=== PATIENT | male | born 1955 | race Caucasian/White ===

== ENCOUNTER 2023-10-08 03:18 | Observation (INO) | payer MEDICARE, SELFPAY ==
[2023-10-07 22:10] VITALS: BP 162/79; BMI 32.0
[2023-10-07 22:36] LABS: Urine Albumin Negative (Neg - Trace); Urine Bilirubin Negative (Negative); Urine Character Clear (Clear); Urine Color Yellow; Urine Glucose 3+ (Negative); Urine Ketone 1+ (Negative); Urine Leukocyte Negative (Negative); Urine Nitrite Negative (Negative); Urine Occult Blood Negative (Negative); Urine Urobilinogen Negative (Neg - 1+)
[2023-10-07 22:46] LABS: % Basophils 1.2 % (0-2); % Eosinophils 5.1 % (0-6); % Immature Granulocytes 0.4 % (0-0.5); % Monocytes 9.4 % (1.7-9.3); % Neutrophils 52.9 % (42.2-75.2); Absolute Basophils 0.1 10^3/uL (0-0.2); Absolute Eosinophils 0.4 10^3/uL (0-0.7); Absolute Lymphocytes 2.4 10^3/uL (1.2-3.4); Absolute Monocytes 0.7 10^3/uL (0.1-0.6); Hematocrit 40.6 % (39.0-52.0); Hemoglobin 14.2 g/dL (13.0-18.0); Mean Corpuscular Hgb 30.3 pg (27.0-31.0); Mean Corpuscular Volume 86.6 fL (80.0-94.0); Mean Platelet Volume 10.9 fL (7.4-10.4); Nucleated Red Blood Cells % 0 % (-); Platelet Count 242 10^3/uL (130-400); Red Blood Cell Count 4.69 10^6/uL (4.70-6.10); Red Cell Dist. Width 13.9 % (11.5-14.5); White Blood Cell Count 7.6 10^3/uL (4.8-10.8)
[2023-10-07 23:19] LABS: Calcium 8.9 mg/dl (8.4-10.2); Carbon Dioxide 17 mmol/L (22-30); Chloride 105 mmol/L (98-107); Estimated Creatinine Clearance 107 ml/min; Glucose 465 mg/dl (70-99); Sodium 131 mmol/L (135-145); eGFR > 60.00
[2023-10-07 23:21] LABS: Blood Urea Nitrogen 22 mg/dl (9-20)
[2023-10-08] VITALS (7 sets, daily range): BP systolic 122–142; BP diastolic 57–77; BMI 32.9
[2023-10-08] MEDS: NSS 1000 IV ×4 (00:08→15:44)
[2023-10-08 00:26] LABS: Venous Blood Gas HCO3 17.8 mmol/L (22-27); Venous Blood Gas O2 Sat % 89.1 %; Venous Blood Gas pCO2 33 mmHg (35-48); Venous Blood Gas pH 7.34 (7.32-7.43); Venous Blood Gas pO2 56 mmHg (30-50)
[2023-10-08 00:35] LABS: Venous Blood Gas O2 Therapy 98
--- NOTE | 2023-10-08 00:39 | ED.GENMED ---
History of Present Illness
General
Chief Complaint: Blood Sugar Problem
Time Seen by Provider: 10/07/23 23:41
Travel History
Have you had any contact with someone who has COVID-19?: No
Do you have any symptoms of coronavirus? Fever > 100 degrees, chills, cough, shortness of breath, sore throat, loss of taste or smell, muscle aches, or headache?: No
History of Present Illness
History of Present Illness:
68-year-old male with history of prostate cancer currently on Lupron, hypertension and newly diagnosed diabetes presents to the emergency department due to elevated glucose. Patient reports a 2 to 3-week history of polyuria and polydipsia, saw his
primary care physician earlier this week and had labs that showed hyperglycemia and hemoglobin A1c of approximately 12. He was started on Farxiga but just began this medication yesterday. He was also provided with a subcutaneous glucose monitor
implant, he notes today that his readings were consistently greater than 350 prompting him to come to the emergency department. He denies any chest pain or shortness of breath, denies any recent fevers. Denies any nausea, vomiting, or abdominal
pain at this time.
Past History
Past History
ED Past Medical History: HTN, Hypercholesterolemia and Other (Prostate cancer )
ED Past Surgical History: Other (Prostate removal )
Social History
Tobacco: Non-smoker
Alcohol: Occasional
Drug: None
Personal:
Living: with family
Employment: Employed
Family History
Family History: Negative Early CAD or CAD
Review of Systems
Review of Systems
Allergies reviewed?: Yes
All Other Systems: ROS reviewed and negative except as documented in HPI and ROS
Phy Exam
Physical Exam
Physical Exam:
GEN: Well appearing, NAD, WDWN
Eyes: PERRLA, EOMs intact, no scleral icterus
HENT: NCAT, oral mucosa moist
Lungs: CTAB, no wheezes, rales, rhonchi, normal chest wall excursion
Cardiac: RRR, no M/R/G, no peripheral edema. Radial pulses 2+ bilat
Abdomen: S, NT, ND, NABS, no masses or hepatosplenomegaly
Neuro: AO x 3
MSK: No gross deformity or ecchymosis. No edema. No digital clubbing
Skin: No rashes, petechiae. Normal color, no pallor or jaundice.
Psych: Calm, cooperative, proper hygiene
Course
Orders/Labs/Results
Orders:
Orders
10/07/23 22:30
Basic Metabolic Panel Urgent
Complete Blood Count/With Diff Urgent
Urinalysis Reflex To Culture Urgent
Date Specimen was Collected: 10/07/23
Time Specimen was Collected: 22:15
10/08/23 00:00
0.9% Sodium Chloride 1000 ml [Nss] 1,000 ml IV BOLUS
10/08/23 00:01
Lactated Ringers [Lr] 1,000 ml IV BOLUS
10/08/23 00:13
Acetone [B-Hydroxybutyrate] Urgent
Basic Metabolic Panel Urgent
Serum Osmolality Urgent
Comment: ADD ON
Venous Blood Gas Urgent
%Oxygen/Room Air: 98
10/08/23 00:17
Pramipexole [Mirapex] 0.25 mg PO NOW STA
10/08/23 01:11
Insulin Aspart [NOVOLOG vial] 10 units SC NOW STA
10/08/23 01:34
Lactic Acid Urgent
10/08/23 02:30
Bedside Glucose- Treatment ONCE
10/08/23 02:32
Add On- LAB Urgent
Tests Added?: serum osmolality
10/08/23 02:57
Admit/Transfer Patient As Directed
Co-Sign Provider:
Level of Care: Observation services
Assign to:: Medical/Surgical
Physician / Group: Jay
Diagnosis: DM-II, Uncontrolled
Code Status As Directed
Resuscitation Status: Full Code
10/08/23 04:48
0.9% Sodium Chloride 1000 ml [Nss] 1,000 ml IV 200 mls/hr
Acetaminophen [Tylenol] 650 mg PO Q4HPRN PRN
Dextrose 50%-Water [Dextrose 50% Syringe] 12.5 grams IV [id number] PRN
Glucagon [GlucaGen] 1 mg IM PRN PRN
Ondansetron Injectable [Zofran] 4 mg IV Q6HPRN PRN
10/08/23 04:48
Diabetes Education Consult Routine
Reason for Consult: Monitor Instruction
Newly Diagnosed?: Yes
Activity As Directed
Activity Level: Ambulate
Bedside Glucose Monitoring As Directed
Frequency: AC&HS
Additional Instructions:: Change to q6h if pt on TPN, tube feeding or not eating
Bladder Scan As Directed
Follow Bladder Retention/Intermittent Cath Algorithm?: Yes
PRN if no void in __ hours: 6
Frequency: Per Retention Algorithm
If Bladder Scan Result >: 400
then:: Straight cath
I/O [Intake/ Output] As Directed
Frequency: Per unit guidelines
Straight Cath As Directed
Frequency: Per Retention Algorithm
Additional Instructions: straight cath as needed per acute urinary retention algorithm for 24 hrs
Additional Instructions: for bladder scan greater than 400 mL
Vital Signs As Directed
Frequency: Per unit guidelines
Weight As Directed
Frequency: Daily
Oxygen Therapy [O2 Therapy] [RESP] Routine
Titrate/Wean O2 to maintain O2 sat greater than (%): 94
DX Deep Vein Thrombosis Video Routine
10/08/23 Breakfast
2000 calorie (17 carb) Diabetic
At Your Request: Full Participation
Does patient need a safe tray?: No
10/08/23 06:52
Basic Metabolic Panel IN AM
Complete Blood Count/No Diff IN AM
Magnesium IN AM
Phosphorus IN AM
TSH Reflex To Free T4 Routine
10/08/23 07:30
Insulin Aspart Corrective Low [Novolog Flexpen-Low Resistance] See Protocol SC AC
10/08/23 08:00
GlipiZIDE [Glucotrol] 5 mg PO BID@0800,1700
Lisinopril [Zestril] 10 mg PO BID
METFORMIN HCl [Glucophage] 1,000 mg PO BID@0800,1700
cyanocobalamin-cobamamide [B12] 1 otf SL BID
10/08/23 18:00
Atorvastatin [Lipitor] 20 mg PO QPM
Enoxaparin Sodium [Lovenox] 40 mg SC QPM
Pramipexole [Mirapex] 0.25 mg PO QPM
Abnormal Lab Results
10/07/23 10/08/23 10/08/23
22:30 00:13 02:50
RBC 4.69 L 10^6/uL
(4.70-6.10)
MPV 10.9 H fL
(7.4-10.4)
Absolute Monos (auto) 0.7 H 10^3/uL
(0.1-0.6)
Monocytes % 9.4 H %
(1.7-9.3)
VBG pCO2 33 L mmHg
(35-48)
VBG pO2 56 H mmHg
(30-50)
VBG HCO3 17.8 L mmol/L
(22-27)
Sodium 131 L mmol/L 132 L mmol/L
(135-145) (135-145)
Carbon Dioxide 17 L mmol/L 16 L mmol/L
(22-30) (22-30)
BUN 22 H mg/dl 23 H mg/dl
(9-20) (9-20)
Glucose 465 H* mg/dl 503 H* mg/dl
(70-99) (70-99)
Serum Osmolality 310 H mOsm/kg
(275-300)
Urine Ketones 1+ A
(Negative)
Urine Glucose 3+ A
(Negative)
B-Hydroxybutyrate 0.48 H mmol/L
(0.02-0.27)
POC Glucose 308 H mg/dl
(70-99)
10/07/23 22:30
10/08/23 00:13
Vital Signs
Initial and Last Documented VS:
Initial Vital Signs
Pulse Resp BP Pulse Ox
83 16 162/79 98
10/07/23 22:10 10/07/23 22:10 10/07/23 22:10 10/07/23 22:10
Last Documented Vital Signs
Temp Pulse Resp BP Pulse Ox
98.2 F 74 16 138/84 94
10/09/23 15:00 10/09/23 15:00 10/09/23 15:00 10/09/23 15:00 10/09/23 15:00
MDM/Problems Addressed
MDM/Problems Addressed:
Pt with new onset DM diagnosed 2d ago by PCP, found to have markedly elevated glucose with a compensated metabolic acidosis evidenced by low bicarb with mildly decreased PCO2. No anion gap and normal pH thus no indication for insulin drip. Due to
the metabolic acidosis, he is high risk for d/c on further PO medications thus will admit to the hospitalist service, subQ insulin started in the ED as well as IV fluid resucitation.
*Critical Care Note
Total Time (30-74mins, 75-104mins- exclusive of procedures): Not Applicable
ED Attending Note
-
Portions of this chart may have been created with voice recognition software.� Occasional wrong word or��sound alike� substitutions may have occurred due to the inherent limitations of voice recognition software.
Discharge Plan
Departure
Patient Disposition: Admit
Date of Disposition: 10/08/23
Time of Disposition: 01:20
Admit to: Med/Surg
Presentation/result/management discussed w/ accepting MD/DO: Hospitalist
Discharge Problem:
Diabetes mellitus, new onset, Compensated metabolic acidosis
Interventions
Interventions:
*Risk Screen - Suicide Last Done: 10/08/23 05:06
*General Assessment Last Done: 10/08/23 00:09
*Neglect/Abuse Screening Last Done: 10/07/23 22:10
ED- Fall Risk Assessment Last Done: 10/07/23 22:10
*ED COVID-19 Vaccine History Last Done: 10/08/23 00:09
*Nursing Disposition Last Done: 10/08/23 04:51
ED- Neurological Assessment Last Done: 10/08/23 00:09
Discharge Date and Time
Discharge Date/Time: 10/08/23 04:53
[2023-10-08 00:48] LABS: Blood Urea Nitrogen 23 mg/dl (9-20); Calcium 8.8 mg/dl (8.4-10.2); Carbon Dioxide 16 mmol/L (22-30); Chloride 107 mmol/L (98-107); Estimated Creatinine Clearance 107 ml/min; Glucose 503 mg/dl (70-99); Potassium 4.9 mmol/L (3.5-5.1); Sodium 132 mmol/L (135-145); eGFR > 60.00
[2023-10-08 00:59] LABS: B-Hydroxybutyrate 0.48 mmol/L (0.02-0.27)
[2023-10-08] MEDS: LR 1000 IV (01:16)
[2023-10-08] MEDS: MIRAPEX 0.25 MG PO ×2 (01:28→17:33)
[2023-10-08] MEDS: NOVOLOG vial 10 UNITS SC (01:28)
[2023-10-08 01:50] LABS: Lactic Acid 1.1 mmol/L (0.7-2.0)
[2023-10-08 02:51] LABS: Glucose - Point of Care 308 mg/dl (70-99)
--- NOTE | 2023-10-08 03:04 | HPS.HSE ---
Family Physician
-
Family Physician: Man Palmer
Chief Complaint
-
Hyperglycemia
History of Present Illness
Patient is a 68y M with PMH significant for prostate cancer and recently diagnosed DM-II who presents to ED complaining of elevated blood glucose values. Patient notes that he has maintained on Lupron for the past 4 years for treatment of his
prostate cancer. He has been doing fairly well. He recently developed symptoms of polyuria and polydipsia and was seen by his PCP. His labs revealed glucose > 300 and A1C = 12%.
Patient was started on Farxiga 5mg daily only a few days ago. He was given a glucometer and instructed on its use.
This evening he was monitoring his glucose and noted that it increased to > 350 and remained that elevated for over an hour.
He presented to the ED for further evaluation. Patient admits to feeling very thirsty, but otherwise has no current complaints.
His initial glucose on labs here in the ED was 503.
Medical History
Past Medical History
Past Medical History: Reports Other
Additional Past Medical History:
Prostate Cancer s/p Surgery, XRT and on Hormonal Therapy
Hypertension
Obesity
DM-II (new)
Pernicious Anemia
Restless Leg Syndrome
Past Surgical History: Reports Other
Additional Past Surgical History:
Total Prostatectomy
Social History
Tobacco: Non-smoker
Alcohol: Occasional
Drug: None
Family History
Family History: Other (Multiple Siblings also with DM-II. Brother: GIST Brother: Sarcoma Father: Colon Cancer)
Allergies / Home Medications
Allergies reflects when Allergies were last updated in [facility].
Home Medications with original date entered in [facility]
Allergy/Medication List:
Allergies
Allergy/AdvReac Type Severity Reaction Status Date / Time
bee pollen [Bee Pollen] Allergy Severe Anaphylaxis Verified 10/07/23 22:10
squash Allergy Unknown Verified 10/07/23 22:10
STONE FRUITS Allergy Unknown Uncoded 10/07/23 22:10
Home Medications
Lupron IM .[id number] 12/11/22
atorvastatin 20 mg tablet 20 mg PO QPM 12/11/22
pramipexole 0.25 mg tablet 0.25 mg PO QPM 12/11/22
cyanocobalamin (B12)-cobamamide 5,000 mcg-100 mcg sublingual lozenge (B12) 1 otf sublingual BID 10/08/23
dapagliflozin propanediol 5 mg tablet (Farxiga) 5 mg PO DAILY 10/08/23
lisinopril 10 mg tablet 10 mg PO BID 10/08/23
multivitamin 1 tab PO DAILY 10/08/23
Review of Systems
-
History Source: Patient
A 12 point ROS was completed and negative except as noted: Yes
Constitutional: Denies Fever, Fatigue or Chills
EENT: Denies Sore Throat
Respiratory: Denies Cough or Trouble Breathing
Cardiac: Denies Chest Pain or Palpitations
Abdomen/GI: Denies Abdominal Pain, Nausea, Vomiting or Diarrhea
: Reports Frequency; Denies Dysuria or Urgency
Musculoskeletal: Denies Joint Pain or Edema
Neurological: Denies Dizzy or Headache
Endocrine: Reports Polyuria and Polydipsia
Psych: Denies Depression or Anxiety
Physical Exam
Vital Signs
Vital Signs
Pulse Resp BP Pulse Ox
83 16 162/79 97
10/07/23 22:10 10/07/23 22:10 10/07/23 22:10 10/08/23 00:09
Physical Exam
General: Other (68y M in no acute distress.)
HEENT: Moist mucous membranes and PERRLA
Respiratory: Clear; No Wheezes, Rales or Rhonchi
Cardiac: S1/S2 and Regular Rhythm; No Murmur
GI: Soft, Non Tender, Non Distended and Normal Bowel Sounds
Musculoskeletal: No Clubbing, No Cyanosis and No Edema
Neuro: AO x 3
Laboratory Results
-
10/07/23 22:30
10/08/23 00:13
Laboratory Results
Lactic Acid 1.1 mmol/L (0.7-2.0) 10/08/23 01:34
Total Bilirubin Cancelled 10/07/23 22:30
AST Cancelled 10/07/23 22:30
ALT Cancelled 10/07/23 22:30
Alkaline Phosphatase Cancelled 10/07/23 22:30
Impression/Plan
-
A/P: Patient is a 68y M with PMH significant for prostate cancer, HTN and recently diagnosed DM-II who presents to ED for evaluation of hyperglycemia.
DM-II, Uncontrolled
Mild HHNK
- Observe overnight for further evaluation and treatment.
- No elevated anion gap / no DKA.
- Hyperglycemic and hyperosmolar with non-gapped metabolic acidosis c/w HHNK.
- Aggressive IVF replacement.
- Glucose decreased to 308 after 10 units of insulin in the ED.
- This is clearly a chronic issue given A1C = 12% as an outpatient.
- Will begin metformin BID with meals and sulfonylurea.
- Follow glucose and cover with additional SSI as needed.
- Once glucose values are improved / stabilized on new med regimen - discharge home for further follow-up with PCP.
- Will hold Farxiga for now. Consider re-initiation once hyperglycemia / polyuria is better controlled.
Benign Hypertension
- Stable. Continue lisinopril and adjust regimen as needed.
Prostate Cancer
- Stable. 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
Obesity due to excess calories / insulin resistance
- Affects all aspects of care.
- Encourage healthy diet and increased activity with goal of weight loss.
- DM education during stay.
Restless Leg Syndrome
- Stable. Continue Mirapex.
DVT Prophylaxis: Lovenox
Code Status: Full
[2023-10-08 03:08] LABS: Osmolality Serum 310 mOsm/kg (275-300)
--- NOTE | 2023-10-08 05:24 | PTCARENOTE ---
Pt. admitted from E.D., AAO x 3, vs stable, IVF's started, call alejo within reach.
[2023-10-08 07:11] LABS: Hemoglobin 11.9 g/dL (13.0-18.0); Mean Corpuscular Volume 88.2 fL (80.0-94.0); Mean Platelet Volume 10.5 fL (7.4-10.4); Platelet Count 182 10^3/uL (130-400); Red Blood Cell Count 3.97 10^6/uL (4.70-6.10); Red Cell Dist. Width 13.5 % (11.5-14.5); White Blood Cell Count 5.1 10^3/uL (4.8-10.8)
[2023-10-08 07:29] LABS: Glucose - Point of Care 159 mg/dl (70-99)
[2023-10-08 07:39] LABS: Blood Urea Nitrogen 17 mg/dl (9-20); Calcium 8.3 mg/dl (8.4-10.2); Carbon Dioxide 17 mmol/L (22-30); Chloride 114 mmol/L (98-107); Estimated Creatinine Clearance 124 ml/min; Glucose 147 mg/dl (70-99); Phosphorus 3.9 mg/dl (2.5-4.5); Potassium 3.9 mmol/L (3.5-5.1); Sodium 136 mmol/L (135-145); eGFR > 60.00
[2023-10-08] MEDS: ZESTRIL 10 MG PO ×2 (10:06→20:15)
[2023-10-08] MEDS: GLUCOTROL 5 MG PO ×2 (10:06→17:35)
[2023-10-08] MEDS: GLUCOPHAGE 1000 MG PO ×2 (10:06→17:35)
[2023-10-08] MEDS: NOVOLOG FLEXPEN-LOW RESISTANCE 1 UNITS SC ×2 (10:07→14:20)
[2023-10-08 10:10] LABS: Glucose - Point of Care 157 mg/dl (70-99)
--- NOTE | 2023-10-08 11:47 | CM ---
Patient seen bedside with , initial assessment completed. Patient and reside together in a one story home, one step to enter. Patient denies the use of DME, VN, or SNF in past. Patient confirms PCP Man Palmer, [facility],
confirms prescription coverage. Patient denies food insecurities. CM reviewed PACE form with patient, signed, placed in chart. CM will continue to follow for discharge planning needs.
Plan; home no needs likely.
[2023-10-08] MEDS: NOVOLOG FLEXPEN-LOW RESISTANCE SC ×2 (12:52→17:05)
[2023-10-08 14:18] LABS: Glucose - Point of Care 162 mg/dl (70-99)
--- NOTE | 2023-10-08 16:09 | W.PN.HOSP.TC ---
Today's Communication/Plan
-
Stop IVF
BMP in am
Dietary eval
Diabetic education
Assessment / Plan
Assessment / Plan
68-year-old male with elevated sugars patient has been on Lupron for prostate cancer. He had seen PCP because of polyuria and was found to have sugars over 300 and hemoglobin A1c 12. He was started on Farxiga. His sugars have been elevated at
home. He decided to come to the hospital as he felt poorly.
CVS: S1-S2 normal
Chest: CTA B/L
Abdomen: Soft, NT / Bowel sounds present
Extremities: No edema, normal pulses
PLASTIC ROLLER: Non focal exam
# Poorly controlled diabetes with a hemoglobin A1c above 12
Started on glipizide 5 twice daily and metformin thousand twice daily
Sugars are under control
Dietary consultation
Long conversation about DM control
# Non Anio gap Metabolic acidosis-?Hyperchloremia
Pt had only one dose of Farxiga as OP-Unlikely -But placed on hold as he needs other meds to take care of sugars
Follow BMP
# Hyponatremia-Likely secondary to elevated sugars. It has normalized
# History of prostate cancer on Lupron. Has a history of radiation therapy and surgery in the past
# Pernicious anemia
# Restless leg syndrome-on pramipexole
# Hypertension-continue lisinopril
# Obesity
# Hyperlipidemia-atorvastatin
# DVT prophylaxis-Lovenox
# Full code
Discussed with at bedside
Anticipated Discharge: Within 24 hours
Subjective/Interval History
-
Date of Service: October 08, 2023
Objective Data
-
Labs:
Laboratory Results
10/08/23
06:52
WBC 5.1
Hgb 11.9 L
Hct 35.0 L
Plt Count 182 D
Sodium 136
Potassium 3.9
Chloride 114 H
Carbon Dioxide 17 L
BUN 17
Creatinine 0.7
Glucose 147 H
Calcium 8.3 L
Vital Signs:
Vital Signs
Temp Pulse Resp BP Pulse Ox
97.6 F 69 12 125/64 99
10/08/23 16:07 10/08/23 16:07 10/08/23 16:07 10/08/23 16:07 10/08/23 16:07
[2023-10-08 16:58] LABS: Glucose - Point of Care 132 mg/dl (70-99)
[2023-10-08] MEDS: LIPITOR 20 MG PO (17:33)
[2023-10-08 22:04] LABS: Glucose - Point of Care 134 mg/dl (70-99)
[2023-10-08 22:23] LABS: Hepatitis C Antibody Negative (Negative)
[2023-10-09 05:42] VITALS: BMI 32.7
[2023-10-09 07:00] VITALS: BP 157/86
[2023-10-09 07:38] LABS: Glucose - Point of Care 159 mg/dl (70-99)
[2023-10-09 08:05] LABS: Blood Urea Nitrogen 11 mg/dl (9-20); Calcium 9.3 mg/dl (8.4-10.2); Carbon Dioxide 16 mmol/L (22-30); Chloride 113 mmol/L (98-107); Estimated Creatinine Clearance 123 ml/min; Glucose 151 mg/dl (70-99); Potassium 4.1 mmol/L (3.5-5.1); Sodium 138 mmol/L (135-145); eGFR > 60.00
[2023-10-09] MEDS: NOVOLOG FLEXPEN-LOW RESISTANCE 1 UNITS SC (09:23)
[2023-10-09] MEDS: ZESTRIL 10 MG PO (09:24)
[2023-10-09] MEDS: GLUCOPHAGE 1000 MG PO ×2 (09:24→16:53)
[2023-10-09] MEDS: GLUCOTROL 5 MG PO ×2 (09:24→16:53)
[2023-10-09 11:50] LABS: Glucose - Point of Care 215 mg/dl (70-99)
[2023-10-09] MEDS: NOVOLOG FLEXPEN-LOW RESISTANCE 2 UNITS SC (13:11)
--- NOTE | 2023-10-09 14:02 | W.PN.HOSP.TC ---
Today's Communication/Plan
-
Discharge home after dietary evaluation today.
Assessment / Plan
Assessment / Plan
68-year-old male with elevated sugars patient has been on Lupron for prostate cancer. He had seen PCP because of polyuria and was found to have sugars over 300 and hemoglobin A1c 12. He was started on Farxiga. His sugars have been elevated at
home. He decided to come to the hospital as he felt poorly.
CVS: S1-S2 normal
Chest: CTA B/L
Abdomen: Soft, NT / Bowel sounds present
Extremities: No edema, normal pulses
BACON SLICER: Non focal exam
# Poorly controlled diabetes with a hemoglobin A1c above 12
Started on glipizide 5 twice daily and metformin thousand twice daily
Sugars are under control
Dietary consultation
Doing well tolerating diet no nausea vomiting
# Non Anion gap Metabolic acidosis-?Hyperchloremia related likely
Pt had only one dose of Farxiga as OP-Unlikely -But placed on hold as he needs other meds to take care of sugars
Follow BMP as outpatient. I have prescribed sodium bicarb for 1 week and given a prescription for BMP in 1 week.
Also check a bladder scan prior to discharge.
# Hyponatremia-Likely secondary to elevated sugars. It has normalized
# History of prostate cancer on Lupron. Has a history of radiation therapy and surgery in the past
# Pernicious anemia
# Restless leg syndrome-on pramipexole
# Hypertension-continue lisinopril
# Obesity
# Hyperlipidemia-atorvastatin
# DVT prophylaxis-Lovenox
# Full code
Discussed with nursing
Discharge coordination time 35 min
Anticipated Discharge: Today
Subjective/Interval History
-
Date of Service: October 09, 2023
Objective Data
-
Labs:
Laboratory Results
10/09/23
06:51
Sodium 138
Potassium 4.1
Chloride 113 H
Carbon Dioxide 16 L
BUN 11
Creatinine 0.7
Glucose 151 H
Calcium 9.3
Vital Signs:
Vital Signs
Temp Pulse Resp BP Pulse Ox
98.2 F 61 16 157/86 96
10/09/23 07:00 10/09/23 07:00 10/09/23 07:00 10/09/23 07:00 10/09/23 07:00
I&O
10/08/23 10/09/23 10/10/23
06:59 06:59 06:59
Intake Total 1200 / 1200
Balance 1200 / 1200
--- NOTE | 2023-10-09 14:04 | W.DS.TRANS ---
Addendum entered and electronically signed by Milad Felipe MD 10/09/23 14:49:
Dictation- [id number]
Original Note:
DC Summary - Shank Sander
-
Discharge Instructions:
Discharge Diagnosis/Procedures Poorly controlled diabetes,Non gap acidosis,
prostate cancer, pernicious anemia, restless leg
syndrome, hypertension, high cholesterol
Diet Diabetic, Carb Controlled
Driving Restrictions As prior to admission
Blood Work BMP 1 week, HBA1C 3 months
Instructions:
Stand-Alone Forms:
Changes to Home Medications: Yes
Discharge Medications:
DC Medications w/original date entered in [facility]
Lupron IM .[id number] Hormonal Agent 12/11/22
atorvastatin 20 mg tablet 20 mg PO QPM High Cholesterol 12/11/22
pramipexole 0.25 mg tablet 0.25 mg PO QPM Neurological Condition 12/11/22
cyanocobalamin (B12)-cobamamide 5,000 mcg-100 mcg sublingual lozenge (B12) 1 otf sublingual BID Supplement 10/08/23
lisinopril 10 mg tablet 10 mg PO BID Blood Pressure 10/08/23
multivitamin 1 tab PO DAILY Supplement 10/08/23
blood sugar diagnostic (Accu-Chek Guide test strips) #200 ea 10/09/23
blood-glucose meter (Accu-Chek Guide Glucose Meter) #1 ea 10/09/23
glipizide 5 mg tablet 5 mg PO BID@0800,1700 Diabetes #60 tabs 10/09/23
lancets (Accu-Chek Softclix Lancets) #200 ea 10/09/23
metformin 1,000 mg tablet 1,000 mg PO BID@0800,1700 Diabetes #60 tabs 10/09/23
sodium bicarbonate 650 mg tablet 650 mg PO DAILY PRN acidosis #7 tabs 10/09/23
Home Medication Changes
New
blood sugar diagnostic (Accu-Chek Guide test strips) #200 ea 10/09/23
blood-glucose meter (Accu-Chek Guide Glucose Meter) #1 ea 10/09/23
glipizide 5 mg tablet 5 mg PO BID@0800,1700 Diabetes #60 tabs 10/09/23
lancets (Accu-Chek Softclix Lancets) #200 ea 10/09/23
metformin 1,000 mg tablet 1,000 mg PO BID@0800,1700 Diabetes #60 tabs 10/09/23
sodium bicarbonate 650 mg tablet 650 mg PO DAILY PRN acidosis #7 tabs 10/09/23
Pending Results: No
[2023-10-09] MEDS: SODIUM BICARBONATE 650 MG PO (14:59)
[2023-10-09 15:00] VITALS: BP 138/84
[2023-10-09] MEDS: LIPITOR 20 MG PO (16:53)
[2023-10-09] MEDS: MIRAPEX 0.25 MG PO (16:53)
[2023-10-09 16:56] LABS: Glucose - Point of Care 174 mg/dl (70-99)
== END 2023-10-09 17:00 | disposition home or self-care (01) ==
LOC: 4 WEST ACU 03:18
PROVIDERS: Emergency Medicine; Physician Assistant; ADMITTING PHYSICIAN Hospitalist; ATTENDING PHYSICIAN Hospitalist; EMERGENCY PHYSICIAN Emergency Medicine; FAMILY PHYSICIAN Family Medicine
DX: E11.65 Type 2 diabetes mellitus with hyperglycemia (principal); E87.1 Hypo-osmolality and hyponatremia; I10 Essential (primary) hypertension; E78.00 Pure hypercholesterolemia, unspecified; E87.20 Acidosis, unspecified; E87.8 Other disorders of electrolyte and fluid balance, not elsewhere classified; D51.0 Vitamin B12 deficiency anemia due to intrinsic factor deficiency; G25.81 Restless legs syndrome; E66.09 Other obesity due to excess calories; Z85.46 Personal history of malignant neoplasm of prostate; Z92.3 Personal history of irradiation; Z79.890 Hormone replacement therapy; Z90.79 Acquired absence of other genital organ(s); Z83.3 Family history of diabetes mellitus; Z80.0 Family history of malignant neoplasm of digestive organs; Z91.030 Bee allergy status; Z91.018 Allergy to other foods; E88.819 Insulin resistance, unspecified
CPT/HCPCS: 80048; 81003; 82010; 82805; 82962; 83605; 83735; 83930; 84100; 84443; 85025; 85027; 86803; 96360; 96361; 96372; 99284; G0378

== ENCOUNTER 2024-10-02 13:27 | Emergency (ER) | payer MEDICARE, SELFPAY ==
[2024-10-02] VITALS (15 sets, daily range): BP systolic 99–132; BP diastolic 46–77; BMI 34.1
--- NOTE | 2024-10-02 13:39 | ED.GENMED ---
History of Present Illness
General
Chief Complaint: Fainting/Passed Out
Time Seen by Provider: 10/02/24 13:39
History of Present Illness
History of Present Illness:
TIME OF INITIAL ENCOUNTER: 1:40 PM
HPI: The patient was at a restaurant and suddenly had a blank stare, was diaphoretic and was complaining of nausea and dizziness. He has had similar episodes like this in the past. He was most recently at [facility] 3 months ago and family reports
a CT of the brain that was normal and a CT of the chest that was normal. He has been treated for prostate cancer for the last 5 years.
EXAM:
GENERAL: The patient is ill-appearing, mildly hypotensive, diaphoretic, initial blood pressure 99 systolic
HEENT: Moist oral mucosa
CARDIOVASCULAR: No murmurs, normal heart rate, regular rhythm, No chest wall tenderness
PULMONARY: No respiratory distress, breath sounds are clear and equal
ABDOMEN: Soft with no peritoneal signs, no tenderness
NEUROLOGIC: Good strength all extremities, no coordination deficits
PSYCHIATRIC: Has difficulty communicating given his associated nausea and dizziness
EXTREMITIES: Nontender, no edema, moves all extremities equally
SKIN: Diaphoretic
NUMBER AND COMPLEXITY OF PROBLEMS ADDRESSED AT THE ENCOUNTER
� Chronic conditions affecting care: Prostate cancer, IDDM
� Acute Exacerbation and/or Progression of Chronic Illness: This is an acute problem
� Differential Diagnosis includes: Hypoglycemia, hypotension, positional vertigo, ACS
AMOUNT AND/OR COMPLEXITY OF DATA TO BE REVIEWED AND ANALYZED
� I performed an independent evaluation of and my interpretation is:
EKG: Sinus 74, leftward axis deviation, nonspecific ST abnormality, poor R wave progression
CT:
X-rays:
Laboratory Studies: White count 11.6, hemoglobin normal, chloride 112, bicarb 15
Other:
� Review of other/old records: I reviewed records, the patient was admitted here in October 2019 for with elevated blood sugars, A1c over 12 and was on Farxiga as an outpatient. At that time he was found to have a nongap metabolic
acidosis. Farxiga was discontinued he was placed on sodium bicarb tablets as well.
� Clinical information was obtained by an independent historian:
� Prescriptions/Medications Considered but not given:
� Further testing considered but not performed: I considered CT of the head given his change in mental status and CT of the chest given the mild hypoxia upon arrival however the patient's strongly recommends against this as
she reports having the studies done just 3 months ago while at [facility] and nothing abnormal was found.
RISK OF COMPLICATIONS AND/OR MORBIDITY OR MORTALITY OF PATIENT MANAGEMENT
� Social determinants of health affecting care: Lives at home spoke to the at bedside
� Discussion with other providers: I discussed the metabolic abnormalities with Dr. Parish with considering bicarb as an outpatient
� Escalation of care including admission/observation vs risk of discharge considered: The patient arrived ill-appearing, diaphoretic, and had trouble giving an adequate history. Initial blood sugar in the 140s. Blood pressure
slightly low at 99 systolic.
ANY OTHER UPDATES:
3:30 PM: On reassessment, the patient appears markedly improved after 1 L of fluid.
VBG shows pH of 7.27, venous bicarb is 20. I considered admission to the hospital given the hyperchloremic metabolic acidosis however the patient feels markedly improved after 1.5 L of fluid and wants to go home. I am giving him a prescription for
bicarbonate at a lower dose than prior because he states he did not tolerated very well the last time it was given to him.
Past History
Past History
ED Past Medical History: HTN, Hypercholesterolemia and Other (Prostate cancer )
ED Past Surgical History: Other (Prostate removal )
Social History
Tobacco: Non-smoker
Alcohol: Occasional
Drug: None
Personal:
Living: with family
Employment: Employed
Family History
Family History: Negative Early CAD or CAD
Phy Exam
Physical Exam
Physical Exam:
See HPI
Course
Orders/Labs/Results
Orders:
Orders
10/02/24
Electrocardiogram (*1) Stat
Comment: ALREADY DONE
10/02/24 13:36
Ondansetron Injectable [Zofran] 4 mg .ROUTE .STK-MED ONE
10/02/24 13:42
Bedside Glucose- Treatment ONCE
10/02/24 13:44
0.9% Sodium Chloride 1000 ml [Nss] 1,000 ml IV BOLUS
10/02/24 13:54
Complete Blood Count/With Diff Urgent
Comprehensive Metabolic Panel Urgent
Magnesium Urgent
TSH Urgent
Troponin I Urgent
10/02/24 14:15
Ondansetron Injectable [Zofran] 4 mg IV NOW STA
10/02/24 15:16
0.9% Sodium Chloride 1000 ml [Nss] 1,000 ml IV BOLUS
10/02/24 15:45
Sodium Bicarbonate 50 meq IV NOW STA
10/02/24 15:58
Venous Blood Gas Urgent
%Oxygen/Room Air: RA
Abnormal Lab Results
10/02/24 10/02/24 10/02/24
13:31 13:54 15:58
WBC 11.6 H 10^3/uL
(4.8-10.8)
Absolute Lymphs (auto) 4.4 H 10^3/uL
(1.2-3.4)
Absolute Monos (auto) 1.1 H 10^3/uL
(0.1-0.6)
Monocytes % 9.6 H %
(1.7-9.3)
VBG pH 7.27 L
(7.32-7.43)
VBG pO2 52 H mmHg
(30-50)
VBG HCO3 20.2 L mmol/L
(22-27)
Chloride 112 H mmol/L
(98-107)
Carbon Dioxide 15 L mmol/L
(22-30)
BUN 22 H mg/dl
(9-20)
Glucose 159 H mg/dl
(70-99)
Calcium 10.3 H mg/dl
(8.4-10.2)
Magnesium 2.7 H mg/dl
(1.6-2.3)
Albumin 5.1 H g/dl
(3.5-5.0)
POC Glucose 142 H mg/dl
(70-99)
10/02/24 13:54
10/02/24 13:54
Vital Signs
Initial and Last Documented VS:
Initial Vital Signs
Pulse Resp BP Pulse Ox
72 16 119/71 91
10/02/24 13:31 10/02/24 13:31 10/02/24 13:31 10/02/24 13:31
Last Documented Vital Signs
Pulse Resp BP Pulse Ox
63 17 131/77 94
10/02/24 14:30 10/02/24 14:30 10/02/24 14:30 10/02/24 14:30
*Critical Care Note
Total Time (30-74mins, 75-104mins- exclusive of procedures): Not Applicable
ED Attending Note
-
Portions of this chart may have been created with voice recognition software.� Occasional wrong word or��sound alike� substitutions may have occurred due to the inherent limitations of voice recognition software.
Discharge Plan
Departure
Discharge Problem:
Hyperchloremic metabolic acidosis
Prescriptions:
New
sodium bicarbonate 325 mg tablet
325 mg PO DAILY Qty: 7 0RF
No Action
atorvastatin 20 mg Tablet
20 mg PO QPM
pramipexole 0.25 mg Tablet
0.25 mg PO QPM
Lupron
IM .[id number]
multivitamin Tablet
1 tab PO DAILY
lisinopril 10 mg Tablet
10 mg PO BID
B12 5,000-100 mcg Lozenge
1 otf SUBLINGUAL BID
metformin 1,000 mg Tablet
1,000 mg PO BID@0800,1700 Qty: 60 0RF
glipizide 5 mg Tablet
5 mg PO BID@0800,1700 Qty: 60 0RF
sodium bicarbonate 650 mg tablet
650 mg PO DAILY PRN (Reason: acidosis) Qty: 7 0RF
(DME) blood-glucose meter [Accu-Chek Guide Glucose Meter] Misc
Qty: 1 0RF
Rx Instructions:
BID
(DME) Accu-Chek Guide test strips Strip
Qty: 200 0RF
Rx Instructions:
BID
(DME) lancets [Accu-Chek Softclix Lancets] Misc
Qty: 200 0RF
Rx Instructions:
BID
Referrals:
UNKNOWN - PT DOES,NOT KNOW [Unknown Provider] -
Activity Restrictions/Additional Instructions:
Your chloride level is slightly high at 112 and your bicarb level is low at 15. Your kidney function is normal. Glucose was 159.
Interventions
Interventions:
*Risk Screen - Suicide Last Done: 10/02/24 13:32
*General Assessment Last Done: 10/02/24 13:32
*Neglect/Abuse Screening Last Done: 10/02/24 13:41
*ED COVID-19 Vaccine History Last Done: 10/02/24 13:32
ED- Cardiac Assessment Last Done: 10/02/24 14:18
ED- Neurological Assessment Last Done: 10/02/24 14:18
Discharge Date and Time
Print Language: FRENCH
[2024-10-02] MEDS: ZOFRAN 4 MG IV (13:45)
[2024-10-02 14:06] LABS: % Basophils 1.3 % (0-2); % Eosinophils 4.8 % (0-6); % Immature Granulocytes 0.3 % (0-0.5); % Lymphocytes 38.2 % (20.5-51.1); % Monocytes 9.6 % (1.7-9.3); % Neutrophils 45.8 % (42.2-75.2); Absolute Basophils 0.2 10^3/uL (0-0.2); Absolute Eosinophils 0.6 10^3/uL (0-0.7); Absolute Lymphocytes 4.4 10^3/uL (1.2-3.4); Absolute Monocytes 1.1 10^3/uL (0.1-0.6); Absolute Neutrophils 5.3 10^3/uL (1.4-6.5); Hematocrit 42.5 % (39.0-52.0); Hemoglobin 14.4 g/dL (13.0-18.0); Mean Corp Hgb Conc. 33.9 g/dL (33.0-37.0); Mean Corpuscular Hgb 30.3 pg (27.0-31.0); Mean Corpuscular Volume 89.5 fL (80.0-94.0); Mean Platelet Volume 10.4 fL (7.4-10.4); Nucleated Red Blood Cells % 0 % (-); Platelet Count 345 10^3/uL (130-400); Red Blood Cell Count 4.75 10^6/uL (4.70-6.10); Red Cell Dist. Width 14.4 % (11.5-14.5); White Blood Cell Count 11.6 10^3/uL (4.8-10.8)
[2024-10-02 14:19] LABS: ALT (SGPT) 47 U/L (0-50); AST (SGOT) 27 U/L (17-59); Albumin 5.1 g/dl (3.5-5.0); Alkaline Phosphatase 62 U/L (38-126); Blood Urea Nitrogen 22 mg/dl (9-20); Calcium 10.3 mg/dl (8.4-10.2); Carbon Dioxide 15 mmol/L (22-30); Chloride 112 mmol/L (98-107); Estimated Creatinine Clearance 97 ml/min; Glucose 159 mg/dl (70-99); Magnesium 2.7 mg/dl (1.6-2.3); Potassium 4.3 mmol/L (3.5-5.1); Sodium 142 mmol/L (135-145); Total Bilirubin 0.7 mg/dl (0.2-1.3); Total Protein 7.5 g/dl (6.3-8.2); eGFR > 60.00
[2024-10-02 14:31] LABS: Troponin I < 0.012 ng/ml
[2024-10-02] MEDS: NSS 1000 IV ×2 (14:32→15:41)
[2024-10-02 14:50] LABS: TSH 3.59 uIU/ml (0.47-4.68)
[2024-10-02 15:44] LABS: Glucose - Point of Care 142 mg/dl (70-99)
[2024-10-02] MEDS: SODIUM BICARBONATE 50 MEQ IV (16:00)
[2024-10-02 16:04] LABS: Venous Blood Gas B.E. -6.6 mmol/L (-4 to +4); Venous Blood Gas HCO3 20.2 mmol/L (22-27); Venous Blood Gas O2 Sat % 82.5 %; Venous Blood Gas pCO2 44 mmHg (35-48); Venous Blood Gas pH 7.27 (7.32-7.43); Venous Blood Gas pO2 52 mmHg (30-50)
== END 2024-10-02 16:58 | disposition home or self-care (01) ==
LOC: EMR 13:27
PROVIDERS: EMERGENCY PHYSICIAN Emergency Medicine; FAMILY PHYSICIAN Family Medicine
DX: E87.29 Other acidosis (principal); C61 Malignant neoplasm of prostate; E11.9 Type 2 diabetes mellitus without complications
CPT/HCPCS: 99284; 96374; 96375; 96361 ×2; 80053; 82805; 82962; 83735; 84443; 84484; 85025; 93005

== ENCOUNTER → 2024-10-25 07:09 | Outpatient (REF) | payer MEDICARE, SELFPAY | LOC: RCS 07:09 | PROVIDERS: ATTENDING PHYSICIAN Internal Medicine; FAMILY PHYSICIAN Family Medicine | DX: R55 Syncope and collapse (principal); E66.811 Obesity, class 1; I10 Essential (primary) hypertension; E87.8 Other disorders of electrolyte and fluid balance, not elsewhere classified | CPT/HCPCS: 93306 ==

== ENCOUNTER 2024-12-25 16:27 | Emergency (ER) | payer MEDICARE, SELFPAY ==
[2024-12-25 16:31] VITALS: BP 118/84
[2024-12-25] MEDS: NSS 1000 IV (17:46)
[2024-12-25] MEDS: DECADRON 10 MG IV (17:46)
[2024-12-25] MEDS: BENADRYL 50 MG IV (19:17)
[2024-12-25 20:30] VITALS: BP 122/88
--- NOTE | 2024-12-26 21:25 | ED.GENMED ---
History of Present Illness
General
Chief Complaint: Insect Sting
Source: patient
Exam Limitations: none
Time Seen by Provider: 12/25/24 16:56
Nursing documentation reviewed up to this point in time: agreed with
History of Present Illness
History of Present Illness:
Patient states he was working in the garden and stepped on a yellow jacket nest. Sustained multiple stings to bilateral legs, hands, arms. No difficulty breathing or swallowing. 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
Has an epipen but did not use. Incident occurred just [employer].
Past History
Past History
ED Past Medical History: HTN, Hypercholesterolemia and Other (Prostate cancer )
ED Past Surgical History: Other (Prostate removal )
Social History
Tobacco: Non-smoker
Alcohol: Occasional
Drug: None
Personal:
Living: with family
Employment: Employed
Family History
Family History: Negative Early CAD or CAD
Review of Systems
Review of Systems
Allergies reviewed?: Yes
All Other Systems: ROS reviewed and negative except as documented in HPI and ROS
Constitutional: Reports no symptoms
EENT: Reports no symptoms
Respiratory: Reports no symptoms
Cardiac: Reports no symptoms
ABD/GI: Reports no symptoms
: Reports no symptoms
Musculoskeletal: Reports no symptoms
Skin: Reports other (Multiple bee stings to bilateral legs, hands, arms. Left ring finger with sting, ring stuck on finger.)
Neurological: Reports no symptoms
Psychiatric: Reports no symptoms
Phy Exam
General Physical Exam
General Presentation: mild distress
General age: appears stated age
General Skin: warm and dry
General Habitus: normal
General Mental: alert
General Hydration: appears well hydrated
ENT Exam
ENT Exam: EOMI, TM's normal, pharynx normal (Uvula midline, no swelling), neck supple, normocephalic and swallowing well
Cardiovascular Exam
Cardiovascular Exam: regular rate/rhythm
Pulmonary Exam
Pulmonary Exam: lungs clear and no respiratory distress
Gastrointestinal Exam
Gastrointestinal Exam: non tender and soft
Musculoskeletal Exam
Musculoskeletal Exam: full ROM and neuro vasc intact
Skin Exam
Skin Exam: normal color, warm/dry and other (Multiple stings to bilateral legs, hands, arms. Swelling anderythema to sites. Ring on left ring finger removed by RN with ring cutter. )
Psychiatric Exam
Psychiatric Exam: normal mood/affect
Course
Orders/Labs/Results
Orders:
Orders
12/25/24 17:08
Ring Removal- Treatment PRN
0.9% Sodium Chloride 1000 ml [Nss] 1,000 ml IV BOLUS
Dexamethasone Sod Phosphate [Decadron] 10 mg IV NOW STA
12/25/24 18:55
Diphenhydramine [Benadryl] 50 mg IV NOW STA
Vital Signs
Initial and Last Documented VS:
Initial Vital Signs
Temp Pulse Resp BP Pulse Ox
98.5 F 91 16 118/84 96
12/25/24 16:31 12/25/24 16:31 12/25/24 16:31 12/25/24 16:31 12/25/24 16:31
Last Documented Vital Signs
Temp Pulse Resp BP Pulse Ox
98.5 F 89 15 122/88 99
12/25/24 16:31 12/25/24 20:30 12/25/24 20:30 12/25/24 20:30 12/25/24 20:30
*Pulse Oximetry
SaO2: 99
Oxygen Mode of Delivery: Room air
Patient hypoxic: no
*Critical Care Note
Total Time (30-74mins, 75-104mins- exclusive of procedures): Not Applicable
Update Note
Update Note:
Patient to ED with multiple bee stings to bilateral legs, hands, arms. Sites are swollen and red. History of anaphylaxis in the past. Given decadron and benadryl IV on arrival to ED. No developement of respiratory issues. Swallowing without
difficutly. Will discharge home. He will continue Bendryl 25-50mg every 4-6 hours for the next 24 hours, then as needed. Will continue short course of prednisone. He has an epipen with him. Reviewed when/how to use epipen and his is comfortable
with use. Given instructions on s/s toreturn to ED and he is agreeable to plan.
ED Attending Note
-
Portions of this chart may have been created with voice recognition software.� Occasional wrong word or��sound alike� substitutions may have occurred due to the inherent limitations of voice recognition software.
Discharge Plan
Departure
Patient Disposition: Home (Routine Discharge)
Date of Disposition: 12/25/24
Time of Disposition: 20:18
Patient with high blood pressure during this ER visit?: No
Condition: Good
Covid-19: Not Applicable
Discharge Problem:
Bee sting
Instructions: Insect Bites and Stings (DC)
Prescriptions:
New
prednisone 20 mg tablet
40 mg PO DAILY Qty: 6 0RF
No Action
atorvastatin 20 mg Tablet
20 mg PO QPM
pramipexole 0.25 mg Tablet
0.25 mg PO QPM
Lupron
IM .[id number]
multivitamin Tablet
1 tab PO DAILY
lisinopril 10 mg Tablet
10 mg PO BID
B12 5,000-100 mcg Lozenge
1 otf SUBLINGUAL BID
metformin 1,000 mg Tablet
1,000 mg PO BID@0800,1700 Qty: 60 0RF
glipizide 5 mg Tablet
5 mg PO BID@0800,1700 Qty: 60 0RF
sodium bicarbonate 650 mg tablet
650 mg PO DAILY PRN (Reason: acidosis) Qty: 7 0RF
(DME) blood-glucose meter [Accu-Chek Guide Glucose Meter] Misc
Qty: 1 0RF
Rx Instructions:
BID
(DME) Accu-Chek Guide test strips Strip
Qty: 200 0RF
Rx Instructions:
BID
(DME) lancets [Accu-Chek Softclix Lancets] Misc
Qty: 200 0RF
Rx Instructions:
BID
sodium bicarbonate 325 mg tablet
325 mg PO DAILY Qty: 7 0RF
Referrals:
Man Palmer, DO [Family Provider, Family Practice] - Tomorrow
Activity Restrictions/Additional Instructions:
Continue Benadryl 25-50mg every 4-6 hours for the next 24hours and then as needed for itching, swelling. Return to the emergency department immediately for any difficulty breathing or swallowing.
Interventions
Interventions:
*Risk Screen - Suicide Last Done: 12/25/24 16:33
*Neglect/Abuse Screening Last Done: 12/25/24 16:33
*Nursing Disposition Last Done: 12/25/24 21:09
ED-Skin Assessment Last Done: 12/25/24 17:51
ED- Pulmonary Assessment Last Done: 12/25/24 17:51
Discharge Date and Time
Discharge Date/Time: 12/25/24 21:09
Print Language: JAPANESE
== END 2024-12-25 21:09 | disposition home or self-care (01) ==
LOC: EMR 16:27
PROVIDERS: EMERGENCY PHYSICIAN Emergency Medicine; FAMILY PHYSICIAN Family Medicine
DX: T63.441A Toxic effect of venom of bees, accidental (unintentional), initial encounter (principal); I10 Essential (primary) hypertension; E78.00 Pure hypercholesterolemia, unspecified; Z90.79 Acquired absence of other genital organ(s)
CPT/HCPCS: 99282

== ENCOUNTER 2024-12-27 08:46 | Emergency (ER) | payer MEDICARE, SELFPAY ==
[2024-12-27 08:54] VITALS: BP 127/77
--- NOTE | 2024-12-27 09:12 | ED.GENMED ---
History of Present Illness
General
Chief Complaint: Chest Pain
Time Seen by Provider: 12/27/24 09:00
History of Present Illness
History of Present Illness:
69-year-old male with history of IDDM, hypertension and hyperlipidemia presents to the emergency department for evaluation of chest pressure that has been occurring intermittently for the past 2 hours. He noted this while driving to work in his
car. He was seen in the emergency department 2 days ago for numerous insect stings and has been treated with antihistamines and a Medrol Dosepak. Was not given epinephrine. Notes that he has been able to exert himself over the past several days
without any similar symptoms. No prior coronary disease. Echocardiogram most recently completed in October of this year that was essentially normal with exception of mild aortic stenosis
Past History
Past History
ED Past Medical History: HTN, Hypercholesterolemia and Other (Prostate cancer )
ED Past Surgical History: Other (Prostate removal )
Social History
Tobacco: Non-smoker
Alcohol: Occasional
Drug: None
Personal:
Living: with family
Employment: Employed
Family History
Family History: Negative Early CAD or CAD
Review of Systems
Review of Systems
Allergies reviewed?: Yes
All Other Systems: ROS reviewed and negative except as documented in HPI and ROS
Phy Exam
Physical Exam
Physical Exam:
GEN: Well appearing, NAD, WDWN
HEENT: Oral mucosa moist, no scleral icterus
Cardiac: Regular rate and rhythm, no obvious murmur
Lung: No respiratory distress, no tachypnea, lungs clear to auscultation bilaterally
MSK: No gross deformity or injuries
Skin: Good color, no pallor or jaundice, no rashes
Neuro: AO x3, moves all extremities freely
Psych: Calm, cooperative
Scores
Heart Score for Chest Pain Patients
STEMI patient?: No
History: Slightly or Non-Suspicious
ECG: Normal
Age: >/= 65 years
Risk Factors: >/= 3 Risk Factors or History of CAD
Troponin: </= Normal Limit
Heart Score for Chest Pain Patients: 4
Heart Score Risk: 20.3% MACE over next 6 weeks
Course
Orders/Labs/Results
Orders:
Orders
12/27/24 08:49
ECG [Electrocardiogram (*1)] Urgent
Reason for Study: Chest Pain
12/27/24 08:50
EKG- Treatment ONCE
12/27/24 09:26
Complete Blood Count/No Diff Urgent
Comprehensive Metabolic Panel Urgent
Troponin I Urgent
Abnormal Lab Results
12/27/24
09:26
WBC 12.1 H 10^3/uL
(4.8-10.8)
RBC 4.42 L 10^6/uL
(4.70-6.10)
Chloride 114 H mmol/L
(98-107)
BUN 25 H mg/dl
(9-20)
ALT 55 H U/L
(0-50)
12/27/24 09:26
12/27/24 09:26
Vital Signs
Initial and Last Documented VS:
Initial Vital Signs
Temp Pulse Resp BP Pulse Ox
97.9 F 72 16 127/77 98
12/27/24 08:54 12/27/24 08:54 12/27/24 08:54 12/27/24 08:54 12/27/24 08:54
Last Documented Vital Signs
Temp Pulse Resp BP Pulse Ox
97.9 F 64 18 139/81 98
12/27/24 08:54 12/27/24 10:00 12/27/24 10:00 12/27/24 10:00 12/27/24 10:03
MDM/Problems Addressed
MDM/Problems Addressed:
Patient had no further pain in the emergency department. EKG is normal and his troponin is negative. He has no reproducible pain on exam. He did have a recent echocardiogram that was reassuring. Given the intermittent nature occurring while
driving I have a low suspicion for ACS, no PE risk factors at this point. Recommend outpatient cardiology follow-up should symptoms recur
Comment
Comment:
EKG independently interpreted by me shows normal sinus rhythm at a rate of [address] changes, normal QTc
*Pulse Oximetry
SaO2: 98
Oxygen Mode of Delivery: Room air
Patient hypoxic: no
*Critical Care Note
Total Time (30-74mins, 75-104mins- exclusive of procedures): Not Applicable
ED Attending Note
-
Portions of this chart may have been created with voice recognition software.� Occasional wrong word or��sound alike� substitutions may have occurred due to the inherent limitations of voice recognition software.
Discharge Plan
Departure
Patient Disposition: Home (Routine Discharge)
Date of Disposition: 12/27/24
Time of Disposition: 10:25
Patient with high blood pressure during this ER visit?: No
Discharge Problem:
Atypical chest pain
Instructions: Chest Pain That Is Not Caused by the Heart (DC)
Prescriptions:
No Action
atorvastatin 20 mg Tablet
20 mg PO QPM
pramipexole 0.25 mg Tablet
0.25 mg PO QPM
Lupron
IM .[id number]
multivitamin Tablet
1 tab PO DAILY
lisinopril 10 mg Tablet
10 mg PO BID
B12 5,000-100 mcg Lozenge
1 otf SUBLINGUAL BID
metformin 1,000 mg Tablet
1,000 mg PO BID@0800,1700 Qty: 60 0RF
glipizide 5 mg Tablet
5 mg PO BID@0800,1700 Qty: 60 0RF
sodium bicarbonate 650 mg tablet
650 mg PO DAILY PRN (Reason: acidosis) Qty: 7 0RF
(DME) blood-glucose meter [Accu-Chek Guide Glucose Meter] Misc
Qty: 1 0RF
Rx Instructions:
BID
(DME) Accu-Chek Guide test strips Strip
Qty: 200 0RF
Rx Instructions:
BID
(DME) lancets [Accu-Chek Softclix Lancets] Misc
Qty: 200 0RF
Rx Instructions:
BID
sodium bicarbonate 325 mg tablet
325 mg PO DAILY Qty: 7 0RF
prednisone 20 mg tablet
40 mg PO DAILY Qty: 6 0RF
Referrals:
Man Palmer DO [Family Provider, Family Practice]
Activity Restrictions/Additional Instructions:
Follow up with your raw stock drier tender if symptoms are recurrent
Interventions
Interventions:
*Risk Screen - Suicide Last Done: 12/27/24 08:54
*General Assessment Last Done: 12/27/24 10:03
*Neglect/Abuse Screening Last Done: 12/27/24 08:54
*ED- Fall Risk Assessment Last Done: 12/27/24 09:09
*ED COVID-19 Vaccine History Last Done: 12/27/24 09:09
*Nursing Disposition Last Done: 12/27/24 10:27
ED- Cardiac Assessment Last Done: 12/27/24 09:08
Discharge Date and Time
Discharge Date/Time: 12/27/24 10:30
Print Language: HUNGARIAN
[2024-12-27 09:34] LABS: Hematocrit 39.5 % (39.0-52.0); Hemoglobin 13.3 g/dL (13.0-18.0); Mean Corp Hgb Conc. 33.7 g/dL (33.0-37.0); Mean Corpuscular Volume 89.4 fL (80.0-94.0); Platelet Count 250 10^3/uL (130-400); Red Cell Dist. Width 14.3 % (11.5-14.5)
[2024-12-27 09:48] LABS: ALT (SGPT) 55 U/L (0-50); AST (SGOT) 28 U/L (17-59); Albumin 4.3 g/dl (3.5-5.0); Alkaline Phosphatase 64 U/L (38-126); Blood Urea Nitrogen 25 mg/dl (9-20); Calcium 9.7 mg/dl (8.4-10.2); Carbon Dioxide 22 mmol/L (22-30); Chloride 114 mmol/L (98-107); Glucose 96 mg/dl (70-99); Potassium 4.1 mmol/L (3.5-5.1); Sodium 142 mmol/L (135-145); Total Protein 6.7 g/dl (6.3-8.2); eGFR 59.84
[2024-12-27 09:59] LABS: Troponin I < 0.012 ng/ml
[2024-12-27 10:00] VITALS: BP 139/81
== END 2024-12-27 10:30 | disposition home or self-care (01) ==
LOC: EMR 08:46
PROVIDERS: Physician Assistant; EMERGENCY PHYSICIAN Emergency Medicine; FAMILY PHYSICIAN Family Medicine
DX: R07.89 Other chest pain (principal); E11.9 Type 2 diabetes mellitus without complications; E78.00 Pure hypercholesterolemia, unspecified; I10 Essential (primary) hypertension; I25.10 Atherosclerotic heart disease of native coronary artery without angina pectoris; I35.0 Nonrheumatic aortic (valve) stenosis; Z90.79 Acquired absence of other genital organ(s)
CPT/HCPCS: 99283; 80053; 84484; 85027; 93005

== ENCOUNTER 2025-05-30 14:57 | Inpatient (IN) | payer MEDICARE, SELFPAY ==
[2025-05-30] VITALS (10 sets, daily range): BP systolic 101–145; BP diastolic 57–91; BMI 31.2
--- NOTE | 2025-05-30 09:39 | ED.GENMED ---
History of Present Illness
General
Chief Complaint: Weakness
Source: patient and family
Exam Limitations: none
Time Seen by Provider: 05/30/25 09:24
Nursing documentation reviewed up to this point in time: agreed with
History of Present Illness
History of Present Illness:
70 male hypertensive diabetic prostate cancer presents with fatigue fever cough he fell last night possibly hit his head he feels very weak nauseated, mild shortness of breath temp of 102 last night no Tylenol today no dysuria or frequency
Past History
Past History
ED Past Medical History: HTN, Hypercholesterolemia and Other (Prostate cancer )
ED Past Surgical History: Other (Prostate removal )
Social History
Tobacco: Non-smoker
Alcohol: Occasional
Drug: None
Personal:
Living: with family
Employment: Employed
Family History
Family History: Negative Early CAD or CAD
Phy Exam
Physical Exam
Physical Exam:
Physical Exam
General: 70 male looks fatigued small abrasion on the right forehead
Neck: Lips are dry no tongue bite
Heart: Tachycardic
Lungs: Crackles at the base
Abdomen: Minimal epigastric tenderness
Neuro: alert and oriented. no focal neurological deficits
Skin: no rash
Psychiatric: well kept. interactive and cooperative
Extremities: no edema.
Sepsis
Sepsis Screening
Sepsis Assessment: Sepsis Ruled Out
Sepsis Screen
Sepsis Screen: Sepsis Ruled Out
Date: 05/30/25
Time: 14:43
Course
Orders/Labs/Results
Orders:
Orders
05/30/25 09:36
Electrocardiogram (*1) Stat
Reason for Study: Other
Other Reason for Exam: pneumonia
Cardiac Monitoring- Treatment ONCE
EKG- Treatment ONCE
0.9% Sodium Chloride 1000 ml [Nss] 1,000 ml IV BOLUS
Acetaminophen [Tylenol] 650 mg PO NOW STA
Ondansetron Injectable [Zofran] 4 mg IV NOW STA
CR Chest - 2 Views Urgent
Comment:
Reason For Exam: cough
05/30/25 09:37
CT Cervical Spine W/o Iv Contr Urgent
Comment:
Reason For Exam: fall
CT Head W/o Iv Contrast Urgent
Comment:
Reason For Exam: fall
Cardiac Monitoring- Treatment ONCE
05/30/25 10:16
Complete Blood Count/With Diff Urgent
Comprehensive Metabolic Panel Urgent
Lactic Acid Q4H
Comment: CANCEL 2nd LACTIC ACID IF 1st LACTIC ACID IS LESS THAN 2
Blood Culture Q30M
DELILAH Source: Blood/Venous
Specimen Description:
05/30/25 10:51
COVID-19 Antigen Urgent
Source: Nasal Swab
Influenza A+B Rapid Molecular Urgent
DELILAH Source: Nasal Swab
Specimen Description:
05/30/25 11:28
Ipratropium/Albuterol Sulfate [Duoneb] 3 ml INH R NOW STA
Oseltamivir Phosphate [Tamiflu] 75 mg PO NOW STA
05/30/25 13:32
Urinalysis Reflex To Culture Urgent
Date Specimen was Collected: 05/30/25
Time Specimen was Collected: 13:31
Urine Microscopic Reflex Cult Urgent
Blood Culture Q30M
DELILAH Source: Blood/Venous
Specimen Description:
Abnormal Lab Results
05/30/25 05/30/25
10:16 13:32
RDW 15.2 H %
(11.5-14.5)
Abs Immat Gran (auto) 0.1 H 10^3/uL
(0-0.05)
Absolute Neuts (auto) 8.2 H 10^3/uL
(1.4-6.5)
Absolute Lymphs (auto) 0.4 L 10^3/uL
(1.2-3.4)
Absolute Monos (auto) 0.9 H 10^3/uL
(0.1-0.6)
Neutrophils % 85.2 H %
(42.2-75.2)
Lymphocytes % 4.5 L %
(20.5-51.1)
Sodium 134 L mmol/L
(135-145)
Glucose 179 H mg/dl
(70-99)
Albumin 5.1 H g/dl
(3.5-5.0)
Urine Ketones 3+ A
(Negative)
Urine Bacteria (Reflex) Few A
(Negative)
Urine Glucose 4+ A
(Negative)
Urine Albumin (Reflex) 1+ A
(Neg - Trace)
05/30/25 10:16
05/30/25 10:16
Vital Signs
Initial and Last Documented VS:
Initial Vital Signs
Temp Pulse Resp BP Pulse Ox
99.0 F 84 20 122/79 95
05/30/25 09:17 05/30/25 09:17 05/30/25 09:17 05/30/25 09:17 05/30/25 09:17
Last Documented Vital Signs
Temp Pulse Resp BP Pulse Ox
99.0 F 75 21 107/57 97
05/30/25 09:17 05/30/25 13:30 05/30/25 13:30 05/30/25 13:00 05/30/25 14:15
MDM/Problems Addressed
Differential Diagnosis Includes:
Influenza pneumonia call trauma dehydration UTI
MDM/Problems Addressed:
Fever cough fall
Chronic conditions affecting care: DM and HTN
Acute Exacerbation and/or Progression of Chronic Illness: DM and HTN
*Pulse Oximetry
SaO2: 88
Oxygen Mode of Delivery: Room air
Patient hypoxic: yes
*EKG
Interpreted by ED Provider?: Yes
Interpretation: normal
Comparison EKG: no comparison EKG present
Heart Rate: 78
Rate: normal
Ischemia: non-specific ST changes
*Pyroglazer Interpretation
Rate: normal
Interpretation: normal
Rhythm: sinus
*Critical Care Note
Total Time (30-74mins, 75-104mins- exclusive of procedures): Not Applicable
Update Note
Update Note:
1120 update labs noted positive influenza
Patient desaturating to 88% on room air,
Reviewed with family placed on oxygen start nebs Tamiflu low threshold to admit
ED Attending Note
-
Portions of this chart may have been created with voice recognition software.� Occasional wrong word or��sound alike� substitutions may have occurred due to the inherent limitations of voice recognition software.
Discharge Plan
Departure
Patient Disposition: Admit
Date of Disposition: 05/30/25
Time of Disposition: 11:30
Admit to: Med/Surg
Presentation/result/management discussed w/ accepting MD/DO: Hospitalist
Patient with high blood pressure during this ER visit?: No
Condition: Fair
Covid-19: Not Applicable
Discharge Problem:
Influenza, Hypoxia
Prescriptions:
No Action
atorvastatin 20 mg Tablet
20 mg PO HS
pramipexole 0.25 mg Tablet
0.25 mg PO HS
Lupron
1 dose IM [id number]
Patient Comments:
05/30/2025, next dose in August per pt.
multivitamin Tablet
1 tab PO DAILY
5-Methyltetrahydrofolic Acid 15 mg tablet
15 mg PO DAILY
polyethylene glycol 3350 [Miralax] 17 gram Powder In Packet
17 g PO DAILY PRN (Reason: constipation)
boron 6 mg Tablet
6 mg PO DAILY
NyQuil 7.5-60-30-1,000 mg/30 mL Liquid
30 ml PO HSPRN PRN (Reason: sleep)
lisinopril 5 mg Tablet
5 mg PO BID
cholecalciferol (vitamin D3) 25 mcg (1,000 unit) Tablet
25 mcg PO DAILY
Jardiance 25 mg Tablet
25 mg PO DAILY
cyanocobalamin (vitamin B-12) 2,000 mcg Lozenge
2,000 mcg PO DAILY
Patient Comments:
05/30/2025, sublingual.
Dayquil liquid
1 dose PO BIDPRN PRN (Reason: congestion)
calcium
1 tab PO DAILY
Referrals:
UNKNOWN - PT DOES,NOT KNOW [Family Provider]
Interventions
Interventions:
*General Assessment Last Done: 05/30/25 10:00
*Neglect/Abuse Screening Last Done: 05/30/25 10:00
*ED COVID-19 Vaccine History Last Done: 05/30/25 10:00
*ED Influenza Vaccine History Last Done: 05/30/25 10:00
*Risk Screen - Suicide (C-SSRS) Last Done: 05/30/25 09:17
ED- Cardiac Assessment Last Done: 05/30/25 10:00
ED- Neurological Assessment Last Done: 05/30/25 10:00
ED- Pulmonary Assessment Last Done: 05/30/25 10:00
Discharge Date and Time
Print Language: MOLDOVAN
[2025-05-30 10:26] LABS: Hematocrit 48.6 % (39.0-52.0); Hemoglobin 16.1 g/dL (13.0-18.0); Mean Corp Hgb Conc. 33.1 g/dL (33.0-37.0); Mean Corpuscular Volume 87.6 fL (80.0-94.0); Nucleated Red Blood Cells % 0 % (-); Platelet Count 195 10^3/uL (130-400); Red Cell Dist. Width 15.2 % (11.5-14.5)
[2025-05-30 10:40] LABS: ALT (SGPT) 50 U/L (0-50); AST (SGOT) 32 U/L (17-59); Albumin 5.1 g/dl (3.5-5.0); Alkaline Phosphatase 70 U/L (38-126); Blood Urea Nitrogen 16 mg/dl (9-20); Calcium 9.6 mg/dl (8.4-10.2); Carbon Dioxide 22 mmol/L (22-30); Chloride 99 mmol/L (98-107); Glucose 179 mg/dl (70-99); Potassium 5.0 mmol/L (3.5-5.1); Sodium 134 mmol/L (135-145); Total Protein 8.1 g/dl (6.3-8.2); eGFR > 60.00
[2025-05-30] MEDS: TYLENOL 650 MG PO ×2 (10:46→20:06)
[2025-05-30] MEDS: ZOFRAN 4 MG IV (10:47)
[2025-05-30] MEDS: NSS 1000 IV (10:47)
[2025-05-30 11:18] LABS: COVID-19 Antigen Negative (Negative)
--- NOTE | 2025-05-30 11:32 | HPS.HSE ---
Family Physician
-
Family Physician: NOT KNOW UNKNOWN - PT DOES
Chief Complaint
-
weakness
History of Present Illness
70M HTN NIDDM Prostate Ca here for fatigue fever cough. Started a few days ago. Endorses sick contacts grandchildren. Prompted to visit ED when he had difficulty getting, resulting in fall from bed. Noted desaturation 88% on room air on ED
evaluation. Labs returned positive for Flu. Hemodynamically stable. Stable respiratory status on 2L. CT Head/cervical spine and CXR noted no acute abn's.
Medical History
Past Medical History
Past Medical History: Reports Other (as above)
Past Surgical History: Reports Other (as above)
Social History
Tobacco: Non-smoker
Alcohol: Occasional
Drug: None
Personal:
Living: With Family
Family History
Family History: Not pertinent (reviewed)
Allergies / Home Medications
Allergies reflects when Allergies were last updated in [facility].
Home Medications with original date entered in [facility]
Allergy/Medication List:
Allergies
Allergy/AdvReac Type Severity Reaction Status Date / Time
bee pollen (Bee Pollen) Allergy Severe Anaphylaxis Verified 05/30/25 15:04
oxaprozin (From Daypro) Allergy internal Verified 05/30/25 15:04
bleeding
squash Allergy Unknown Verified 05/30/25 15:04
STONE FRUITS Allergy Unknown Uncoded 05/30/25 15:04
Home Medications
Lupron 1 dose IM [id number] Hormonal Agent 12/11/22
atorvastatin 20 mg tablet 20 mg PO HS High Cholesterol 12/11/22
pramipexole 0.25 mg tablet 0.25 mg PO HS Neurological Condition 12/11/22
multivitamin 1 tab PO DAILY Supplement 10/08/23
5-Methyltetrahydrofolic Acid 15 mg PO DAILY 05/30/25
Dayquil 1 dose PO BIDPRN PRN congestion 05/30/25
boron 6 mg tablet 6 mg PO DAILY 05/30/25
calcium 1 tab PO DAILY 05/30/25
cholecalciferol (vitamin D3) 25 mcg (1,000 unit) tablet 25 mcg PO DAILY 05/30/25
cyanocobalamin (vitamin B-12) 2,000 mcg lozenges 2,000 mcg PO DAILY 05/30/25
[id number]-[id number]-acetaminophen 7.5 mg-60 [id number]/30mL oral liqd 30 ml PO HSPRN PRN sleep 05/30/25
empagliflozin 25 mg tablet (Jardiance) 25 mg PO DAILY 05/30/25
lisinopril 5 mg tablet 5 mg PO BID 05/30/25
polyethylene glycol 3350 17 gram oral powder packet (Miralax) 17 g PO DAILY PRN constipation 05/30/25
Review of Systems
-
A 12 point ROS was completed and negative except as noted: Yes
Constitutional: Reports Other (as below)
Physical Exam
Vital Signs
Vital Signs
Temp Pulse Resp BP Pulse Ox
99.0 F 84 22 145/79 88
05/30/25 09:17 05/30/25 11:15 05/30/25 11:15 05/30/25 11:00 05/30/25 11:30
Physical Exam
General: Other (as below)
Laboratory Results
-
05/30/25 10:16
05/30/25 10:16
Laboratory Results
Lactic Acid 1.5 mmol/L (0.7-2.0) 05/30/25 10:16
Total Bilirubin 1.0 mg/dl (0.2-1.3) 05/30/25 10:16
AST 32 U/L (17-59) 05/30/25 10:16
ALT 50 U/L (0-50) 05/30/25 10:16
Alkaline Phosphatase 70 U/L (38-126) 05/30/25 10:16
Impression/Plan
-
ROS
General: reports fever generalized fatigue/weakness
Neuro: Denies seizure shaking loss of consciousness dizziness vertigo
Psych: denies depression hallucinations confusion manic episodes
Endocrine: Denies polyuria polydipsia polyphagia heat/cold intolerance
HEENT: Denies blindness visual disturbances epistaxis
Pulmonary: Reports coughing sob denies hemoptysis sneezing
Cardiovascular: denies chest pain palpitations leg swelling
Hematology: denies signs symptoms of anemia easy bruising/bleeding
Gastrointestinal: reports nausea denies vomiting diarrhea constipation hematemesis hematochezia melena
Genito-Urinary: denies retention incontinence dysuria
Musculoskeletal: denies joint pain
Dermatology: denies rash laceration bruising
Physical Exam
General: No pallor, cyanosis, or jaundice.
HEENT: Throat clear. PERRLA Normocephalic atraumatic
NECK: Supple. No JVD Carotid Bruits
RESPIRATORY: Lungs clear to auscultation. No crackles wheezes stridor
CVS: S1, S2 normal. RRR. No murmur, rub or gallop.
ABDOMEN: Soft, non-tender. No distension. BS+/normal.
EXTREMITIES: No peripheral cyanosis or edema.
CALL TAKER: AOx3 conversant coherent
Psych: Calm
IMPRESSION:
70M HTN NIDDM Restless leg syndrome Prostate Ca here for fatigue fever cough. Started a few days ago. Endorses sick contacts grandchildren. Prompted to visit ED when he had difficulty getting, resulting in fall from bed. Noted desaturation 88%
on room air on ED evaluation. Labs returned positive for Flu. Hemodynamically stable. Stable respiratory status on 2L. CT Head/cervical spine and CXR noted no acute abn's.
PLAN:
#Acute Hypoxia and generalized fatigue/weakness 2/2 Flu
Tele Admit
Tamiflu 75mg BID
wean O2 supplementation as tolerated
incentive spirometer
Duoneb R QID and prn sob/wheezing
Fall Precautions
PT eval
#Reported Hx HTN
-no home antihypertensives
-monitor bp for now and consider antihypertensive start if necessary.
#NIDDM
Carb Controlled diet
Follow up A1c
sliding scale
DVT ppx Lovenox
Full Code
I spent a total of 76 minutes with the patient or on the floor. More than 50% of this time involved counseling and coordination of care.
[2025-05-30] MEDS: TAMIFLU 75 MG PO ×2 (11:35→20:06)
[2025-05-30] MEDS: DUONEB 3 ML INH ×2 (11:35→17:46)
[2025-05-30 13:49] LABS: Urine Character Slightly Cloudy (Clear)
[2025-05-30 14:23] LABS: Urine Red Blood Cell 0-2 /HPF (0-2); Urine White Cell 0-2 /HPF (0-5)
[2025-05-30 16:13] LABS: Glucose - Point of Care 142 mg/dl (70-99)
[2025-05-30] MEDS: DUONEB INH (16:39)
[2025-05-30] MEDS: LOVENOX 40 MG SC (18:56)
[2025-05-30] MEDS: ZESTRIL PO (20:03)
[2025-05-30] MEDS: MIRAPEX 0.25 MG PO (21:12)
[2025-05-30 22:26] LABS: Glucose - Point of Care 128 mg/dl (70-99)
[2025-05-31] VITALS (7 sets, daily range): BP systolic 100–136; BP diastolic 57–74; PULSE 77; O2SAT 97
[2025-05-31] MEDS: TYLENOL 650 MG PO (02:46)
--- NOTE | 2025-05-31 07:24 | W.PN.HOSP.TC ---
Today's Communication/Plan
-
PT
cont Tamiflu
sputum cx if possible
Incentive spirometer acapella
supportive care cough
Assessment / Plan
Assessment / Plan
Physical Exam
General: No pallor, cyanosis, or jaundice.
HEENT: Throat clear. PERRLA Normocephalic atraumatic
NECK: Supple. No JVD Carotid Bruits
RESPIRATORY: Lungs clear to auscultation. No crackles wheezes stridor, stable respiratory status on room air
CVS: S1, S2 normal. RRR. No murmur, rub or gallop.
ABDOMEN: Soft, non-tender. No distension. BS+/normal.
EXTREMITIES: No peripheral cyanosis or edema.
CLOTH SPREADER: AOx3 conversant coherent
Psych: Calm
IMPRESSION:
70M HTN NIDDM Restless leg syndrome Prostate Ca here for fatigue fever cough. Started a few days ago. Endorses sick contacts grandchildren. Prompted to visit ED when he had difficulty getting, resulting in fall from bed. Noted desaturation 88%
on room air on ED evaluation. Labs returned positive for Flu. Hemodynamically stable. Stable respiratory status on 2L. CT Head/cervical spine and CXR noted no acute abn's.
PLAN:
#Acute Hypoxia and generalized fatigue/weakness 2/2 Flu
Tele Admit
Tamiflu 75mg BID
wean O2 supplementation as tolerated
incentive spirometer
Duoneb prn sob/wheezing
Fall Precautions
PT eval appreciated home health
supportive care cough
#Reported Hx HTN
-no home antihypertensives
-monitor bp for now and consider antihypertensive start if necessary.
#NIDDM
Carb Controlled diet
A1c 7.7
sugars well controlled w/o need for insulin correction
Ok to discontinue routine fingersticks
DVT ppx Lovenox
Full Code
I spent a total of 45 minutes with the patient or on the floor. More than 50% of this time involved counseling and coordination of care.
Anticipated Discharge: 24 - 48 hours
Subjective/Interval History
-
Date of Service: May 31, 2025
No acute distress, appears comfortable at this time. weakness persists along with cough. stable respiratory status on room air.
Objective Data
-
Labs:
Laboratory Results
05/31/25
06:00
WBC Pending
Hgb Pending
Hct Pending
Plt Count Pending
Sodium Pending
Potassium Pending
Chloride Pending
Carbon Dioxide Pending
BUN Pending
Creatinine Pending
Glucose Pending
Calcium Pending
Vital Signs:
Vital Signs
Temp Pulse Resp BP Pulse Ox
98.5 F 80 19 126/70 95
05/31/25 04:30 05/31/25 03:22 05/31/25 03:22 05/31/25 03:22 05/31/25 03:22
I&O
05/30/25 05/31/25 06/01/25
06:59 06:59 06:59
Intake Total 720 / 720
Output Total 800 / 800
Balance -80 / -80
[2025-05-31 07:38] LABS: Glucose - Point of Care 108 mg/dl (70-99)
[2025-05-31] MEDS: DUONEB 3 ML INH ×2 (07:42→11:37)
[2025-05-31] MEDS: FARXIGA 10 MG PO (07:54)
[2025-05-31] MEDS: VITAMIN B-12 2000 MCG PO (07:54)
[2025-05-31] MEDS: VITAMIN D3 (cholecalciferol) 25 MCG PO (07:54)
[2025-05-31] MEDS: THERAGRAN 1 TABLET PO (07:54)
[2025-05-31] MEDS: ZESTRIL 5 MG PO ×2 (07:54→19:35)
[2025-05-31] MEDS: TAMIFLU 75 MG PO ×2 (07:54→19:31)
[2025-05-31 08:59] LABS: Blood Urea Nitrogen 19 mg/dl (9-20); Calcium 9.1 mg/dl (8.4-10.2); Carbon Dioxide 21 mmol/L (22-30); Chloride 104 mmol/L (98-107); Estimated Creatinine Clearance 94 ml/min; Glucose 110 mg/dl (70-99); Magnesium 2.6 mg/dl (1.6-2.3); Potassium 4.2 mmol/L (3.5-5.1); Sodium 134 mmol/L (135-145); eGFR > 60.00
[2025-05-31 09:21] LABS: Hematocrit 45.5 % (39.0-52.0); Hemoglobin 15.3 g/dL (13.0-18.0); Mean Corp Hgb Conc. 33.6 g/dL (33.0-37.0); Mean Corpuscular Volume 87.5 fL (80.0-94.0); Nucleated Red Blood Cells % 0 % (-); Platelet Count 158 10^3/uL (130-400); Red Cell Dist. Width 15.5 % (11.5-14.5)
[2025-05-31 09:37] LABS: Glycohemoglobin (HgbA1c) 7.7 % (4.0-5.9)
[2025-05-31 10:04] LABS: Hepatitis C Antibody Negative (Negative)
[2025-05-31] MEDS: ZOFRAN 4 MG IV (11:11)
[2025-05-31] MEDS: TUMS CHEWABLE TABLET 200 MG PO ×2 (13:15→19:11)
[2025-05-31] MEDS: MUCINEX 600 MG PO ×2 (13:15→19:30)
--- NOTE | 2025-05-31 16:24 | CM ---
Patient seen at bedside [address] Patient lives with , 1 story home home. Patient PCP is Dr. lowery [place], primary care Dr. Coronel and uses the [facility] on [address] Patient plan is for home with no needs. CM will continue to follow for discharge
planning needs.
Plan; home with no needs.
[2025-05-31] MEDS: LOVENOX 40 MG SC (17:51)
[2025-05-31] MEDS: MIRAPEX 0.25 MG PO (21:54)
[2025-06-01 03:19] VITALS: BP 107/67
[2025-06-01 07:00] VITALS: BP 104/59
--- NOTE | 2025-06-01 07:10 | W.PN.HOSP.TC ---
Addendum entered and electronically signed by Spencer Pedroza MD 06/01/25 14:32:
Correction patient on Lisinopril 5 mg BID for hypertension
-intermittently required holding due to low pressures
-recommended to continue monitoring/log bp at home BID, hold lisinopril if SBP<130, and follow up with primary care provider
Original Note:
Today's Communication/Plan
-
discharge
Assessment / Plan
Assessment / Plan
Physical Exam
General: No pallor, cyanosis, or jaundice.
HEENT: Throat clear. PERRLA Normocephalic atraumatic
NECK: Supple. No JVD Carotid Bruits
RESPIRATORY: Lungs clear to auscultation. No crackles wheezes stridor, stable respiratory status on room air
CVS: S1, S2 normal. RRR. No murmur, rub or gallop.
ABDOMEN: Soft, non-tender. No distension. BS+/normal.
EXTREMITIES: No peripheral cyanosis or edema.
MOTORSPORTS TECHNICIAN: AOx3 conversant coherent
Psych: Calm
IMPRESSION:
70M HTN NIDDM Restless leg syndrome Prostate Ca here for fatigue fever cough. Started a few days ago. Endorses sick contacts grandchildren. Prompted to visit ED when he had difficulty getting, resulting in fall from bed. Noted desaturation 88%
on room air on ED evaluation. Labs returned positive for Flu. Hemodynamically stable. Stable respiratory status on 2L. CT Head/cervical spine and CXR noted no acute abn's.
PLAN:
#Acute Hypoxia and generalized fatigue/weakness 2/2 Flu
Tele Admit
Tamiflu 75mg BID 5 days 05/30 - 06/03
weaned off oxygen supplementation stable resp status on room air
incentive spirometer
Duoneb prn sob/wheezing
Fall Precautions
PT eval appreciated home health
supportive care cough
#Reported Hx HTN
-no home antihypertensives
-bp stable no need for antihypertensives
#NIDDM
Carb Controlled diet
A1c 7.7
sugars well controlled w/o need for insulin correction
Ok to discontinue routine fingersticks
DVT ppx Lovenox
Full Code
Medically stable for discharge home with home services and outpatient follow up recommendations
Total Time Preparing Discharge ___40____ minutes including examination of the patient, summary of the hospital stay, instructions for continuing care to all relevant caregivers; and preparation of discharge records, prescriptions, and referral
forms if necessary.
Anticipated Discharge: Today
Subjective/Interval History
-
Date of Service: June 01, 2025
Seen and examined at bedside in no acute distress. Overall reports feeling well. Sitting up comfortably in chair. Weakness and shortness of breath improved. Stable respiratory status on room air. Eager to go home.
Objective Data
-
Labs:
Laboratory Results
06/01/25
07:05
WBC Pending
Hgb Pending
Hct Pending
Plt Count Pending
Sodium Pending
Potassium Pending
Chloride Pending
Carbon Dioxide Pending
BUN Pending
Creatinine Pending
Glucose Pending
Calcium Pending
Vital Signs:
Vital Signs
Temp Pulse Resp BP Pulse Ox
98.1 F 95 16 107/67 94
06/01/25 03:19 06/01/25 03:19 06/01/25 03:19 06/01/25 03:19 06/01/25 03:19
I&O
05/31/25 06/01/25 06/02/25
06:59 06:59 06:59
Intake Total 720 / 720 1500 / 1500
Output Total 800 / 800
Balance -80 / -80 1500 / 1500
[2025-06-01 07:47] LABS: Hematocrit 44.8 % (39.0-52.0); Hemoglobin 14.9 g/dL (13.0-18.0); Mean Corp Hgb Conc. 33.3 g/dL (33.0-37.0); Mean Corpuscular Volume 88.2 fL (80.0-94.0); Nucleated Red Blood Cells % 0 % (-); Platelet Count 172 10^3/uL (130-400); Red Cell Dist. Width 15.4 % (11.5-14.5)
[2025-06-01] MEDS: VITAMIN D3 (cholecalciferol) 25 MCG PO (07:54)
[2025-06-01] MEDS: MUCINEX 600 MG PO (07:54)
[2025-06-01] MEDS: ZESTRIL PO (07:54)
[2025-06-01] MEDS: VITAMIN B-12 2000 MCG PO (07:54)
[2025-06-01] MEDS: THERAGRAN 1 TABLET PO (07:55)
[2025-06-01] MEDS: TAMIFLU 75 MG PO (07:55)
[2025-06-01] MEDS: FARXIGA 10 MG PO (07:55)
[2025-06-01 08:12] LABS: Blood Urea Nitrogen 20 mg/dl (9-20); Calcium 9.1 mg/dl (8.4-10.2); Carbon Dioxide 24 mmol/L (22-30); Chloride 101 mmol/L (98-107); Estimated Creatinine Clearance 94 ml/min; Glucose 117 mg/dl (70-99); Magnesium 2.6 mg/dl (1.6-2.3); Potassium 4.4 mmol/L (3.5-5.1); Sodium 134 mmol/L (135-145); eGFR > 60.00
--- NOTE | 2025-06-01 14:32 | W.DCSUMMARY ---
Discharge Summary
Discharge Data
Date of Admission: 05/30/25
Date of Discharge: 06/01/25
-
Pending Results: Yes
Additional Pending Results:
sputum culture
Discharge Plan
-
Patient Disposition: Home with Home Care
Discharge Diagnosis/Procedures: Flu
Diabetes
Hypertension
Condition: Fair
Diet: Diabetic, Carb Controlled
Activity: As tolerated
Driving Restrictions: As prior to admission
Bathing Restrictions: None
Activity Restrictions/Additional Instructions:
Follow up with primary care provider in 1 week of discharge.
Tamiflu has been prescribed for Flu. 06/03/25 last day for Tamiflu
Keep a log of your pressures at home twice a day- to review with your primary care provider in follow up for further evaluation treatment hypertension.
Hold Lisinopril if systolic blood pressure is less than 130.
Please take medications as prescribed/recommended and follow up with primary care provider and/or other healthcare provider involved in your care for further adjustments to your medication regimen as necessary.
Referrals:
UNKNOWN - PT DOES,NOT KNOW [Family Provider]
Prescriptions:
New
oseltamivir 75 mg Capsule
75 mg PO BID Qty: 5 0RF
Rx Instructions:
06/03 Last day for Tamiflu
Continued
atorvastatin 20 mg Tablet
20 mg PO HS
pramipexole 0.25 mg Tablet
0.25 mg PO HS
Lupron
1 dose IM [id number]
Patient Comments:
05/30/2025, next dose in August per pt.
multivitamin Tablet
1 tab PO DAILY
5-Methyltetrahydrofolic Acid 15 mg tablet
15 mg PO DAILY
polyethylene glycol 3350 [Miralax] 17 gram Powder In Packet
17 g PO DAILY PRN (Reason: constipation)
boron 6 mg Tablet
6 mg PO DAILY
[id number]-FS-acetaminophen 7.5-60-30-1,000 mg/30 mL Liquid
30 ml PO HSPRN PRN (Reason: sleep)
cholecalciferol (vitamin D3) 25 mcg (1,000 unit) Tablet
25 mcg PO DAILY
Jardiance 25 mg Tablet
25 mg PO DAILY
cyanocobalamin (vitamin B-12) 2,000 mcg Lozenge
2,000 mcg PO DAILY
Patient Comments:
05/30/2025, sublingual.
Dayquil liquid
1 dose PO BIDPRN PRN (Reason: congestion)
calcium
1 tab PO DAILY
lisinopril 5 mg Tablet
5 mg PO BID Qty: 0 0RF
Rx Instructions:
Hold if Systolic Blood Pressure <130
Discharge Orders:
Discharge Patient (As Directed); Ordered 06/01/25
Ordered By: Spencer Pedroza
Discharge Date and Time
Print Language: UPPER SORBIAN
[2025-06-01 14:42] VITALS: BP 136/68
== END 2025-06-01 15:00 | disposition home or self-care (01) | DRG 195 ==
LOC: 2 NORTH 14:57
PROVIDERS: ADMITTING PHYSICIAN Internal Medicine; EMERGENCY PHYSICIAN Emergency Medicine
DX: J10.1 Influenza due to other identified influenza virus with other respiratory manifestations (principal); R53.1 Weakness; I10 Essential (primary) hypertension; E11.9 Type 2 diabetes mellitus without complications; C61 Malignant neoplasm of prostate; E78.00 Pure hypercholesterolemia, unspecified; R09.02 Hypoxemia; G25.81 Restless legs syndrome; J30.1 Allergic rhinitis due to pollen; W06.XXXA Fall from bed, initial encounter; Y93.89 Activity, other specified; Y92.003 Bedroom of unspecified non-institutional (private) residence as the place of occurrence of the external cause; Z79.84 Long term (current) use of oral hypoglycemic drugs; Z88.8 Allergy status to other drugs, medicaments and biological substances; Z91.018 Allergy to other foods; Z11.52 Encounter for screening for COVID-19
CPT/HCPCS: 70450; 71046; 72125; 80048; 80053; 81003; 81015; 82962; 83036; 83605; 83735; 84100; 85025; 86803; 87040; 87070; 87205; 87502; 87811; 93005; 94640; 96361; 96374; 97163; 99285